=== PATIENT | female | born 1965 | race Caucasian/White ===

== ENCOUNTER 2025-02-06 12:01 | Emergency (ER) | payer OTHER, SELFPAY ==
[2025-02-06 12:04] VITALS: BP 130/89; PULSE 69; RESP 18; TEMP 36.1; O2SAT 98; BMI 25.8
--- NOTE | 2025-02-06 12:10 | ED.GENADULT ---
HPI - General Adult General Time Seen by Provider: 12:11 Date Seen: 02/06/25 Chief complaint: Dizziness/Vertigo Stated complaint: near syncope Time Seen by Provider: 02/06/25 12:08 Source: patient and RN notes reviewed Mode of arrival: ambulatory Limitations: no limitations History of Present Illness HPI narrative: This 59-year-old female is brought in by EMS from a friend's house that she stopped at due to a lightheadedness/disequilibrium feeling. Patient had been at [employer] this morning, ate breakfast and about 1/2 hour later was driving after leaving. She just started feeling like things were wave E, vision felt wavy, felt like she would not be able to stand up. She pulled over. She did this a couple times and then eventually stopped at a friend's house. She felt the same symptom where it was a woozy your wavy type feeling. No focal loss of strength, no focal visual changes, no headache. During this she felt a little sense of right cheek numbness, she does have a history of recurrent sinus disease. She has not been sick but has felt tired, has quite a busy lifestyle in feels she has been pushing herself. She has noted no focal evidence of illness, no fevers. She did not feel like she had any focal strength issues, arms and legs were working but when the symptoms were happening, did not feel like she would be able to stand up. Her friend ultimately called EMS. Patient does possess a history of vertigo, states her symptoms were more like this, not necessarily the spinning sensation. She also did note some nausea during this but no chest pain, no palpitations. EMS did give her 4 mg oral Zofran, she is feeling better. There was no speech issues, she did not have any syncope. Patient does report nicotine dependence with smoking. She does clean houses for a living, sometimes will use some ibuprofen for some body aches or muscle soreness. Does take multivitamin. No other chronic medications. Related Data Home Medications ?Medication ?Instructions ?Recorded ?Confirmed No Known Home Medications 02/06/25 02/06/25 Review of Systems Status of ROS: Reports: 6 or more systems reviewed and unremarkable except as noted in History and below PFSH PFSH Social History Smoking Status: Current every day smoker What tobacco products do you use: cigarettes Smoking packs per day: 1 Smoking cigarettes per day: 20.0 Do you use any of these nicotine containing products: None How often do you have a drink containing alcohol: 2-4 times a month AUDIT-C Alcohol total score: 2 Non-prescribed substance use: denies use Exam Const: Vital Signs, click to edit/add: Vital Signs - 24 hr 02/06/25 12:04 02/06/25 12:16 02/06/25 14:18 Temperature 97.0 F L 98.1 F Pulse Rate [Left P ulse Oximeter] 69 75 Respiratory Rate 18 18 Blood Pressure [Le ft Upper Arm] 130/89 124/81 Pulse Oximetry 98 100 100 Oxygen Delivery Me thod Room Air Room Air This 5-year-old female seen in exam room 6, alert, interactive, no apparent distress. GCS is 15/15, NIH is 0. Speech is normal, fluent. Pupils equal round reactive, sclera clear, extraocular muscles intact, no nystagmus. Symmetrical facial function oropharynx oral mucosa, no exudates erythema. Neck is supple, good range of motion, no adenopathy, no masses, no thyromegaly masses or nodules, no jugular venous distension. Lungs are clear, good air entry, no wheezing or crackles, tachypnea, no accessory muscle use. CV regular rate and rhythm, no murmur, normal S1-S2, no S3-S4. Abdomen is soft, nontender, nondistended, no organomegaly, no rebound or guarding. Strength is 5 5 and symmetric, no dysmetria, strength is normal including both upper and lower extremities. Documenting provider has reviewed patient's vital signs: yes Course Course ED Course: This sounds more like disequilibrium verses lightheadedness or presyncope. She did have a little sense right facial numbness and tingling which has resolved. Her nausea is improved. Do need to consider atypical presentation of cardiac disease. Will have her on cardiac monitoring and pulse oximetry. Will do head CT and CT angiography looking for cerebrovascular disease. She is back to baseline without any neurologic deficits. Thus, if [employer] disease would likely be TIA. Will give full complement of labs, monitor here. Reevaluation(s) Time of Reevaluation #1: 15:03 Reevaluation #1: Reviewed with patient normal work up here. She is feeling better but does wonder if this is her vertigo returning. She had similar symptoms before like this. She found acupuncture to be extremely helpful with that. We discussed other modalities like PT, she did bring up chiropractor as well. She certainly has no evidence of ischemic disease, no [employer] disease on the CT or CTAs. Will plan on discharge to home at this time, if ongoing recurrent symptoms, may need MR imaging. She and I did review that numbness in of itself is not typically a stroke symptom, can be order entry representative of demyelinating disease but usually does happened earlier in life. Nonetheless, if her current symptoms, would consider MR imaging. MR imaging is not something I can do in the ER here at this time nor do I feel that it is emergently indicated. Vital Signs Vital signs: Initial Vital Signs Temperature 97.0 F L 02/06/25 12:04 Temperature Source Temporal Artery Scan 02/06/25 12:04 Pulse Rate 69 02/06/25 12:04 Respiratory Rate 18 02/06/25 12:04 Blood Pressure 130/89 02/06/25 12:04 Blood Pressure Mean 102 02/06/25 12:04 Blood Pressure Position Sitting 02/06/25 12:04 Pulse Oximetry 98 02/06/25 12:04 Oxygen Delivery Method Room Air 02/06/25 12:04 Vital Signs Temperature 97.0 F L 02/06/25 12:04 Pulse Rate 69 02/06/25 12:04 Respiratory Rate 18 02/06/25 12:04 Blood Pressure 130/89 02/06/25 12:04 Pulse Oximetry 98 02/06/25 12:04 Oxygen Delivery Method Room Air 02/06/25 12:04 Temperature 98.1 F 02/06/25 14:18 Pulse Rate 75 02/06/25 14:18 Respiratory Rate 18 02/06/25 14:18 Blood Pressure 124/81 02/06/25 14:18 Pulse Oximetry 100 02/06/25 14:18 Oxygen Delivery Method Room Air 02/06/25 14:18 Medical Decision Making Lab Data Lab results reviewed: Yes I reviewed the patient's lab results Labs: Lab Results 02/06/25 02/06/25 Range/Units 12:48 14:06 WBC 8.49 (4.50-11.00) K/uL RBC 4.82 (4.00-5.20) m/uL Hgb 14.8 (12.0-16.0) gm/dL Hct 43.3 (33.0-51.0) % MCV 90 (80-100) fL MCH 31 (26-34) pg MCHC 34 (32-36) gm/dL RDW Coeff of Ike 13.0 (11.5-15.5) % Plt Count 276 (140-440) K/uL Neut % (Auto) 76.0 H (42.0-72.0) % Lymph % (Auto) 17.7 L (20-44) % [place] % (Auto) 4.9 (0.0-11.0) % Eos % (Auto) 0.8 (0.0-7.0) % Baso % (Auto) 0.5 (0.0-3.0) % Neut # (Auto) 6.50 (1.7-7.0) K/uL Lymph # (Auto) 1.50 (0.90-2.90) K/uL [place] # (Auto) 0.40 (0.00-0.90) K/UL Eos # (Auto) 0.07 (0.00-0.50) K/uL Baso # (Auto) 0.04 (0.00-0.30) K/uL Abs Immat Gran (auto) 0.01 (0.00-0.30) K/uL Imm/Tot Granulo (auto) 0.1 % INR 0.84 L (0.91-1.10) APTT 31 (23-33) Seconds Sodium 141 (135-149) mmol/L Potassium 4.2 (3.6-5.1) mmol/L Chloride 104 (96-114) mmol/L Carbon Dioxide 26 (20-32) mmol/L Anion Gap 11 (7-15) mEq/L BUN 13 (7-30) mg/dL Creatinine 0.6 (0.5-1.5) mg/dL Estimated Creat Clear 89.72 Estimated GFR 103 ml/min Glucose 101 (60-115) mg/dL Calcium 10.1 (8.4-10.6) mg/dL Magnesium 2.0 (1.5-2.6) mg/dL Total Bilirubin 0.5 (0.1-1.5) mg/dL AST 33 (12-35) U/L ALT 29 (4-35) U/L Alkaline Phosphatase 78 (40-150) U/L Troponin I < 0.01 < 0.01 (0.01-0.04) ng/mL C-Reactive Protein < 0.5 L (0.5-1.0) mg/dL NT-Pro-B Natriuret Pep 166 (See Note) pg/mL Total Protein 8.2 (6.0-8.3) g/dL Albumin 4.9 (3.3-5.0) g/dL TSH 1.730 (0.270-4.200) uIU/mL Imaging Data CT scan - head: Attestation: I have reviewed the pertinent imaging results. Radiologist's impression: Patient: RUBIN HENDRIX Facility:?[facility] Patient ID:?[id number] Site Patient ID:?[id number]. Site :?1965 Study:?CT-Head WITHOUT-02/06/2025 1:57:48 PM Ordering Physician:Ashley Kelley Final Report: INDICATION: Presyncope, lightheadedness. TECHNIQUE: Noncontrast CT of the head with multiplanar reconstruction utilizing bone and soft tissue algorithms. COMPARISON: None available. FINDINGS: No acute intracranial hemorrhage. The odonnell-white matter interface is preserved. The ventricles are normal in size. No abnormal extra-axial fluid collection is identified. Normal calvarium and skull base. Unremarkable orbits. The paranasal sinuses and mastoid air cells are clear. IMPRESSION: No acute intracranial abnormality. Please note that all CT scans at this facility use dose modulation, iterative reconstruction, and/or weight-based dosing when appropriate to reduce radiation dose to as low as reasonably achievable. Dictated by Warren Robert MD @ 02/06/2025 2:11:16 PM (Electronic Signature) CT- Other: Attestation: I have reviewed the pertinent imaging results. Radiologist's impression: Patient: RUBIN HENDRIX Facility:?[facility] Patient ID:?[id number] Site Patient ID:?[id number]. Site :?1965 Study:?CT-Neck Angio Angio WITH 95 CC ISOVUE 370-02/06/2025 1:58:25 PM Ordering Physician:Ashley Kelley Preliminary Report: No arterial dissection or significant arterial stenosis. Read by:?Warren Robert MD @02/06/2025 2:14:18 PM Patient: RUBIN HENDRIX Facility:?[facility] Patient ID:?[id number] Site Patient ID:?[id number]. Site :?1965 Study:?CT-Head Angio WITH 95 CC ISOVUE 370-02/06/2025 1:58:39 PM Ordering Physician:?Vandana Kelley Preliminary Report: No large vessel occlusion, significant arterial stenosis, or intracranial aneurysm. Read by:?Warren Robert MD @02/06/2025 2:13:15 PM ECG Data Attestation: I personally reviewed and interpreted this ECG as follows: (Normal sinus rhythm, 69 beats per minute. No acute ischemia or infarct noted, normal EKG.) Prior ECG tracings: not available for review Interpretation: EKG timed 2:02 p.m. shows normal sinus rhythm, 70 beats per minute. No evidence of any infarct or ischemia, no change. This is a normal EKG. Discharge Plan Discharge Clinical Impression: Vertigo Patient Disposition: Home, Self-Care Condition: Stable Instructions: Vertigo (ED), Dizziness (ED) Additional Instructions: Can try some meclizine which is over the counter for any recurrent symptoms. Certainly can try chiropractor, acupuncture as well as considering physical therapy for vestibular rehab if symptoms are returning/continue. Would recommend follow up with primary provider in clinic and discuss MRI imaging of brain if you have return of the facial numbness at all or if vertigo symptoms are continuing. Activity Level: Activity as Tolerated Prescriptions: No Action No Known Home Medications Follow Up/Referrals: Provider,Not a Local [Primary Care Provider, Family Practice] Stand Alone Forms: [employer] Info Instructions
[2025-02-06 12:16] VITALS: O2SAT 100
--- NOTE | 2025-02-06 12:16 | CRLHL7_ITS ---
For Patients: As a result of the Century Cures Act, medical imaging exams and procedure reports are released immediately into your electronic medical record. You may view this report before your referring provider. If you have questions, please contact your health care provider. INDICATION: Presyncopal; lightheaded. Disequilibrium. COMPARISON: None available. TECHNIQUE: CTA neck with contrast bolus tracking, 3D angiographic rendering using maximum intensity projection (MIP) and images permanently archived. FINDINGS: The origins of the great vessels are patent. There is no significant carotid artery stenosis or dissection. There is no significant vertebral artery stenosis or dissection. IMPRESSION: Patent cervical arterial vasculature without hemodynamically significant stenosis. Please note that all CT scans at this facility use dose modulation, iterative reconstruction, and/or weight-based dosing when appropriate to reduce radiation dose to as low as reasonably achievable. Dictated by Wagner Sharpe MD @ 02/06/2025 2:49:10 PM (Electronically Signed)
--- NOTE | 2025-02-06 12:16 | CRLHL7_ITS ---
For Patients: As a result of the Century Cures Act, medical imaging exams and procedure reports are released immediately into your electronic medical record. You may view this report before your referring provider. If you have questions, please contact your health care provider. CLINICAL HISTORY: Presyncopal; lightheaded. Disequilibrium. TECHNIQUE: Standard helical CT image acquisition through the head following the administration of intravenous contrast was performed. 3D and MIP reconstructions were performed at a separate workstation and permanently archived. COMPARISON: None available. FINDINGS: No intracranial proximal large vessel occlusion or flow-limiting luminal stenosis. No evidence of cerebral aneurysm. No findings to suggest an arterial-venous shunting lesion. The major dural venous sinuses and deep venous system are patent. IMPRESSION: No intracranial proximal large vessel occlusion, flow-limiting luminal stenosis, or cerebral aneurysm. Please note that all CT scans at this facility use dose modulation, iterative reconstruction, and/or weight-based dosing when appropriate to reduce radiation dose to as low as reasonably achievable. Dictated by Wagner Sharpe MD @ 02/06/2025 2:51:37 PM (Electronically Signed)
--- NOTE | 2025-02-06 12:17 | CRLHL7_ITS ---
For Patients: As a result of the Century Cures Act, medical imaging exams and procedure reports are released immediately into your electronic medical record. You may view this report before your referring provider. If you have questions, please contact your health care provider. INDICATION: Presyncope, lightheadedness. TECHNIQUE: Noncontrast CT of the head with multiplanar reconstruction utilizing bone and soft tissue algorithms. COMPARISON: None available. FINDINGS: No acute intracranial hemorrhage. The odonnell-white matter interface is preserved. The ventricles are normal in size. No abnormal extra-axial fluid collection is identified. Normal calvarium and skull base. Unremarkable orbits. The paranasal sinuses and mastoid air cells are clear. IMPRESSION: No acute intracranial abnormality. Please note that all CT scans at this facility use dose modulation, iterative reconstruction, and/or weight-based dosing when appropriate to reduce radiation dose to as low as reasonably achievable. Dictated by Warren Robert MD @ 02/06/2025 2:11:16 PM (Electronically Signed)
--- OUTSIDE RECORDS SUMMARY | 2025-02-06 12:33 | XMS_ITS | Clinical Summary ---
Author Organization [facility] Address [address] [place] [id number] Care Team Providers Care Check Airman Name Role Phone Rosaura Warren DO Primary Care Provider Allergies No known active allergies Medications meloxicam 15 mg tabletIndication s:Pes anserine bursitis,Acute pain of right knee Take 1 tablet by mouth once daily. 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 Gender Identity Not on file Sexual Orientation Not on file Obstetrics History Para Term AB IAB SAB Ectopic Multiple Livin g Live Births 3 3 3 3 Date Outcome GA Total Labor Labor/2nd/3rd Weight Sex Type Anes PTL Xena A1 A5 Name Clin Term Term Term Last Filed Vital Signs Vital Sign Reading Time Taken Comments Blood Pressure 119/85 12/05/2017 12:20 PM CDT Pulse 69 12/05/2017 12:20 PM CDT Temperature 36.7 C (98 F) 11/15/2008 9:37 PM CDT Respiratory Rate 18 03/16/2009 2:39 PM CDT Oxygen Saturation 97% 11/15/2008 11:52 PM CDT Inhaled Oxygen Concentration - - Weight 70.8 kg (156 lb) 12/05/2017 12:20 PM CDT Height 162.6 cm (5' 4) 11/24/2017 2:56 PM CDT Body Mass Index 26.78 11/24/2017 2:56 PM CDT Plan of Treatment Health Maintenance Due Date Last Done Comments HIV for age 15-65 1979 Hepatitis C screening for ag e 18-79 1982 Mammogram for age 45-75 12/28/2009 12/28/2008 Pneumococcal series for age 50+ (1 of 1 - PCV) 2014 Zoster (shingles) series for age 50+ (1 of 2) 2014 BMI (ht and wt on same day) for age 18+ 11/24/2018 11/24/2017 Depression screening for age 12+ 11/24/2018 11/24/2017 Fecal testing non-DNA (FIT,FOBT,iFOBT) for age 45-75 12/05/2018 12/05/2017 Pap test for age 21-65 12/03/2020 8, 01/13/2009 Lipids for age 45-75 12/03/2022 12/03/2017, 11/04/2008 COVID-19 vaccine series ( - season) 2024 Influenza Vaccine (Season Ended) 2025 06/03/2007 Tetanus booster 12/04/2027 12/03/2017 RSV vaccine for adults or (1 - 1-dose 75+ series) 2039 Tdap Completed 12/03/2017 Hepatitis B series for 19+ Aged Out N o longer eligible based on patient's age to complete this topic Procedures Procedure Name Priority Date/Time Associated Diagnosis Comments OCCULT BLOOD IFOBT STOOL Routine 12/05/2017 7:00 AM CDT Screening for colon cancer CRIMINAL RECORDS TECHNICIAN THIN PREP PAP SCREEN IMAGED Routine 12/03/2017 10:11 AM CDT Screening for cervical cancer LIPID PANEL W REFLEX MEASURED LDL Routine 12/03/2017 10:08 AM CDT Overweight XR MAMMO BILAT SCREEN FFDM (IA) Routine 12/28/2008 11:30 PM CDT Other Screening Mammogram from Last 3 Months or Most Recently Relevant to Health Maintenance Results * OCCULT BLOOD IFOBT STOOL (12/05/2017 7:00 AM CDT) STOOL BLOOD ,IFOBT Negative Negative 12/05/2017 3:30 PM CDT [facility] Stool STOOL SPECIMEN / Unknown Non-Blood / Unknown 12/05/2017 7:00 AM CDT 12/05/2017 2:27 PM CDT us Rosaura Warren DO LABORATORY Final Resul t Performing Organization Address City/State/[place] Co de Phone Number [facility] [address] [place] [address], * CRIMINAL RECORDS TECHNICIAN THIN PREP PAP SCREEN IMAGED (12/03/2017 10:11 AM CDT) Case Report Gynecologic Cytology Report Case: [id number] Authorizing Provider: Rosaura Warren DO Collected: 12/03/2017 1011 Ordering Location: [facility] Received: 12/03/2017 1011 Clinic First Screen: Jessica Luke Specimen: CRIMINAL RECORDS TECHNICIAN ThinPrep Vial Screening, Cervical 12/12/2017 4:47 PM CDT [facility] INTERPRETATION/ RESULT NEGATIVE FOR INTRAEPITHELIAL LESION OR MALIGNANCY (NIL) (none) 12/12/2017 4:47 PM CDT [facility] at 1647 CDT SPECIMEN ADEQUACY Satisfactory for evaluation Endocervical cells cannot be evaluated due to severe atrophy 12/12/2017 4:47 PM CDT [facility] HPV REQUEST HPV if ASCUS 12/12/2017 4:47 PM CDT [facility] Date of LMP 2013 12/12/2017 4:47 PM CDT [facility] Last Pap Date unknown 12/12/2017 4:47 PM CDT [facility] Last Pap Result NIL 8 4:47 PM CDT [facility] Abnormal Pap or [place] Bx in last 5 years No 12/12/2017 4:47 PM CDT [facility] Menstrual Status Postmenopausal 12/12/2017 4:47 PM CDT [facility] [place] Bx Done Today No 12/12/2017 4:47 PM CDT [facility] Additional Information None given 12/12/2017 4:47 PM CDT [facility] Automated Review Successful 12/12/2017 4:47 PM CDT [facility] Comment:Specimen processed s uccessfully by automated pre owned sales manager device, ThinPrep Imaging System, [employer] Note The pap test is a screening technique, not a diagnostic procedure. It is used primarily to screen for squamous cancers and precursor lesions. Published studies have shown that it is subject to both false negative and false positive results. The pap test should not be used as the sole means to diagnose or exclude pre-malignant and malignant lesions. Interpreted at [facility] ([facility], [facility], [facility], [facility], [facility], [facility], [facility]) 12/12/2017 4:47 PM CDT [facility] Other (Cervical) Non-Blood / Unknown 12/03/2017 10:11 AM CDT 12/03/2017 10:11 AM CDT us Rosaura Warren DO PATHOLOGY/CYTOLOGY Final Re sult [facility] [address] [place] [address], [place] * LIPID PANEL W REFLEX MEASURED LDL (12/03/2017 10:08 AM CDT) CHOLESTEROL,TOTAL 191 100 - 199 mg/dL 12/03/2017 4:53 PM CDT [facility] TRIGLYCERIDES 117 <150 mg/dL 12/03/2017 4:53 PM CDT [facility] HDL CHOLESTEROL 48 >40 mg/dL 8 4:53 PM CDT [facility] NON-HDL CHOLESTEROL 143 <145 mg/dl 12/03/2017 4:53 PM CDT [facility] CHOL/HDL RATIO 3.98 <4.50 12/03/2017 4:53 PM CDT [facility] LDL CHOLESTEROL 120 <=130 mg/dL 12/03/2017 4:53 PM CDT [facility] PROVIDER ORDERED STATUS RANDOM 12/03/2017 4:53 PM CDT [facility] Blood BLOOD SPECIMEN / Unknown Venipuncture / Unknown 12/03/2017 10:08 AM CDT 12/03/2017 10:08 AM CDT us Rosaura Warren DO CHEMISTRY Final Resul t [facility] [address] [place] [address], [place] * XR MAMMO BILAT SCREEN FFDM (12/28/2008 11:30 PM CDT) MAMMOGRAM ACR 0 Incomplete: Additional imaging evaluation needed Anatomical Region Laterality Modality BREASTS, Breast Left, Breast Right Bilateral Mammography 12/28/2008 11:3 0 PM CDT Impressions 01/03/2009 10:54 AM CDT Requires left breast ultrasound. [facility] will contact the patient directly to arrange followup. ACR 0 Incomplete: Additional imaging evaluation needed Narrative 01/03/2009 10:54 AM CDT BILATERAL FULL-FIELD SCREENING DIGITAL MAMMOGRAPHY WITH COMPUTER-AIDED DETECTION (12/28/08) INDICATION: Screening. COMPARISON: None, baseline. TECHNIQUE: Full-field screening digital mammography with computer-aided detection. FINDINGS: The breast composition contains scattered fibroglandular densities. Benign-appearing intramammary lymph nodes upper outer right breast in the axillary tail. There is a mass in the 12 o'clock position of the left breast that requires further evaluation with targeted ultrasound. Images were checked with CAD for a second read. Procedure Note Christopher Del Rosario - 01/03/2009 BILATERAL FULL-FIELD SCREENING DIGITAL MAMMOGRAPHY WITH COMPUTER-AIDEDDETECTION (12/28/08) INDICATION: Screening. COMPARISON: None, baseline. TECHNIQUE: Full-field screening digital mammography with computer- aideddetection. FINDINGS: The breast composition contains scattered fibroglandulardensities. Benign-appearing intramammary lymph nodes upper outer rightbreast in the axillary tail. There is a mass in the 12 o'clock positionof the left breast that requires further evaluation with targetedultrasound. Images were checked with CAD for a second read. IMPRESSION: Requires left breast ultrasound. [facility] will contact the patient directly to arrangefollowup. ACR 0 Incomplete: Additional imaging evaluation needed Rosemary Lux MD MAMMO F inal Result from Last 3 Months or Most Recently Relevant to Health Maintenance Insurance [facility] OF [employer]-OR-ITS Care Teams Check Airman Relationship Specialty [place] [address] [place] [address] PCP - General Family Practice 11/24/17
--- OUTSIDE RECORDS SUMMARY | 2025-02-06 12:33 | XMS_ITS | Clinical Summary ---
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 [facility] Allergies No known active allergies Medications diclofenac (VOLTAREN) 1 % gel Apply 2 g to skin 4 times a day. 100 g 11/22/2017 Active Active Problems No known active problems Social History Tobacco Use Types Packs/Day Years Used Date Smoking Tobacco: Every Day Cigarettes Smokeless Tobacco: Never Comments Unknown Sex and Gender Information Value Date Recorded Sex Assigned at Not on file Legal Sex Female 5:59 PM CDT Gender Identity Not on file Sexual Orientation Not on file Last Filed Vital Signs Vital Sign Reading Time Taken Comments Blood Pressure - - Pulse - - Temperature 36.4 C (97.6 F) 11/22/2017 10:31 AM CDT Respiratory Rate - - Oxygen Saturation - - Inhaled Oxygen Concentration - - Weight - - Height - - Body Mass Index - - Plan of Treatment Health Maintenance Due Date Last Done Comments Cervical Cancer Screening Due 1964 Colon Cancer Screening Plan Due 1964 Hep C Screening (Preventive Services) 1964 Mammogram 1964 HIV Screening (Preventive Services) 1980 Adult Preventive Visit 1982 DTaP/Tdap/Td Vaccine (1 - Tdap) 1983 Cholesterol 2009 Pneumococcal Vaccine 50+ Yrs (1 of 1 - PCV) 2014 Zoster/Shingles Vaccine (1 of 2) 2014 COVID-19 Vaccine (1 - 4-2 5 season) 2024 Influenza Vaccine (Season Ended) 2025 RSV Vaccine (1 - 1-dose 75+ series) 2039 HepA Vaccine Aged Out No longer eligi ble based on patient's age to complete this topic HepB Vaccine Aged Out No longer eligi ble based on patient's age to complete this topic Hib Vaccine Aged Out No longer eligi ble based on patient's age to complete this topic IPV (Polio) Vaccine Aged Out No longe r eligible based on patient's age to complete this topic MCV4 Vaccine Aged Out No longer eligi ble based on patient's age to complete this topic Meningococcal B Vaccine Aged Out No l onger eligible based on patient's age to complete this topic Insurance BCBS OUT OF STATE Care Teams Cut Off Saw Operator Pipe Blanks Relationship Specialty Start Date End Date Everett Henriquez PCP - General 11/26/10
[2025-02-06 12:56] LABS: Basophils Absolute Auto 0.04 K/uL (0.00-0.30); Basophils Percent Auto 0.5 % (0.0-3.0); Eosinophils Absolute Auto 0.07 K/uL (0.00-0.50); Eosinophils Percent Auto 0.8 % (0.0-7.0); Hematocrit 43.3 % (33.0-51.0); Hemoglobin* 14.8 gm/dL (12.0-16.0); Immature Granulocytes Abs Auto 0.01 K/uL (0.00-0.30); Immature Granulocytes Pct Auto 0.1 %; Lymphocytes Percent Auto 17.7 % (20-44); Mean Corpuscular HGB Conc 34 gm/dL (32-36); Mean Corpuscular Hemoglobin 31 pg (26-34); Mean Corpuscular Volume 90 fL (80-100); Monocytes Percent Auto 4.9 % (0.0-11.0); Platelet Count* 276 K/uL (140-440); Red Blood Count 4.82 m/uL (4.00-5.20); White Blood Count* 8.49 K/uL (4.50-11.00)
[2025-02-06 13:06] LABS: Slide Review Reflex No
[2025-02-06 13:08] LABS: Chloride* 104 mmol/L (96-114)
[2025-02-06 13:09] LABS: Albumin* 4.9 g/dL (3.3-5.0); Potassium* 4.2 mmol/L (3.6-5.1); Sodium* 141 mmol/L (135-149)
[2025-02-06 13:12] LABS: Alanine Aminotransferase* 29 U/L (4-35); Alkaline Phosphatase* 78 U/L (40-150); Anion Gap 11 mEq/L (7-15); Aspartate Amino Transferase* 33 U/L (12-35); Bilirubin Total* 0.5 mg/dL (0.1-1.5); Blood Urea Nitrogen* 13 mg/dL (7-30); Carbon Dioxide* 26 mmol/L (20-32); Creatinine* 0.6 mg/dL (0.5-1.5); Est. Creatinine Clearance* 89.72; Estimated Glomerular Filt Rate 103 ml/min; Total Protein* 8.2 g/dL (6.0-8.3)
[2025-02-06 13:13] LABS: Calcium* 10.1 mg/dL (8.4-10.6); Glucose* 101 mg/dL (60-115)
[2025-02-06 13:19] LABS: C Reactive Protein* < 0.5 mg/dL (0.5-1.0)
[2025-02-06 13:31] LABS: NT Pro B Type NatriureticPept* 166 pg/mL (See Note); Troponin I* < 0.01 ng/mL (0.01-0.04)
[2025-02-06 13:55] LABS: INR 0.84 (0.91-1.10); Prothrombin Time 12.3 Seconds
[2025-02-06 13:56] LABS: Partial Thromboplastin Time* 31 Seconds (23-33)
[2025-02-06 14:18] VITALS: BP 124/81; PULSE 75; RESP 18; TEMP 36.7; O2SAT 100
[2025-02-06 14:53] LABS: Troponin I* < 0.01 ng/mL (0.01-0.04)
== END 2025-02-06 15:21 | disposition home or self-care (01) ==
PROVIDERS: Emergency Provider Family Medicine
DX: R42 Dizziness and giddiness (principal); R20.0 Anesthesia of skin; R11.0 Nausea; F17.210 Nicotine dependence, cigarettes, uncomplicated
CPT/HCPCS: 36415; 70450; 70496; 70498; 80053; 83735; 83880; 84443; 84484; 85025; 85610; 85730; 86140; 93005; 94761; 99284; 99285; Q9967